=== PATIENT | male | born 1970 | race Caucasian/White ===

== ENCOUNTER 2019-10-19 08:15 | Day surgery (SDC) | payer BC ==
[~2019-10-19 08:15] MED LIST: Buffered Lidocaine 1% SYRIN* 1 ML/SYRINGE INTRADERM ONE; Famotidine IV* 10 MG/ML 2 ML (20 mg) IV ONE; Lactated Ringers 1000 ML Bag* 1,000 ML IV SCH
[2019-10-19] MEDS ORDERED: ceFAZolin 2 GM PREMIX in ORs 2 GM/50 ML BAG ONE (08:35)
[2019-10-19] MEDS ORDERED: Buffered Lidocaine 1% SYRIN* 1 ML/SYRINGE INTRADERM ONE (08:35)
[2019-10-19] MEDS ORDERED: Famotidine IV* 10 MG/ML 2 ML (20 mg) ONE (08:36)
[2019-10-19] MEDS ORDERED: fentaNYL* 50 MCG/ML 2 ML VIAL (100 MCG VIAL) ONE ×2 (09:14→11:52)
[2019-10-19] MEDS ORDERED: Ondansetron INJ* 2 MG/ML VIAL ONE ×2 (09:14→13:00)
[2019-10-19] MEDS ORDERED: KETAMINE HCL* 50 MG/ML 10 ML VIAL ONE (09:14)
[2019-10-19] MEDS ORDERED: Dexamethasone IV* 4 MG/ML 1 ML (4 MG) ONE (09:14)
[2019-10-19] MEDS ORDERED: Midazolam* 1 MG/ML 5 ML VIAL (5 MG) ONE (09:14)
[2019-10-19] MEDS ORDERED: Ketorolac INJ* 30 MG/ML 1 ML VIAL ONE (09:14)
[2019-10-19] MEDS ORDERED: Propofol* 10 MG/ML 20 ML BTL ONE (09:14)
[2019-10-19] MEDS ORDERED: Lidocaine 2% PF * 5 ML VIAL ONE (09:14)
[2019-10-19] MEDS ORDERED: EPINEPHRINE 1 MG/ML 1 ML VIAL ONE (10:07)
[2019-10-19] MEDS ORDERED: Lidocaine 1% w EPI 1:100,000* MDV 20 ML VIAL ONE (10:07)
[2019-10-19] MEDS ORDERED: Bupivacaine 0.5%* 50 ML MDV VIAL ONE (10:08)
[2019-10-19] MEDS ORDERED: Bupivacaine 0.25% SDV* 30 ML ONE (10:08)
[2019-10-19] MEDS ORDERED: Acetaminophen IV 1GM/100ML * 100 ML ONE (11:55)
[2019-10-19] MEDS ORDERED: HYDROmorphone INJ1* 1 MG/ML SYRINGE IV PRN (11:56)
[2019-10-19] MEDS ORDERED: fentaNYL* 50 MCG/ML 2 ML VIAL (100 MCG VIAL) IV PRN (11:56)
[2019-10-19] MEDS ORDERED: Naloxone* 0.4 MG/ML 1 ML VIAL IV PRN (11:56)
[2019-10-19] MEDS ORDERED: Ondansetron INJ* 2 MG/ML VIAL IV PRN (11:56)
[2019-10-19] MEDS ORDERED: Scopolamine 1.5 mg* PATCH ONE (11:57)
[2019-10-19] MEDS ORDERED: HYDROmorphone INJ1* 1 MG/ML SYRINGE ONE (12:15)
[2019-10-19] MEDS ORDERED: DiMENhydriNATE IV* 50 MG/ML VIAL ONE (13:22)
[2019-10-19 14:39] VITALS: BP 138/85
--- NOTE | 2019-10-20 00:18 | OP ---
DATE OF OPERATION: 10/19/19 [facility] DATE OF : 70 ATTENDING SURGEON: Dirk Galeano MD. [employer] SALES AGENT: DARRELL Ahumada. ANESTHESIA: General. PRE-OP DIAGNOSES: 1. Right knee anterior cruciate ligament tear. 2. Right knee lateral meniscus tear. POST-OP DIAGNOSES: 1. Right knee anterior cruciate ligament tear. 2. Right knee lateral meniscus tear. OPERATIVE PROCEDURES: 1. Right knee arthroscopy. 2. Right knee anterior cruciate ligament reconstruction using allograft. 3. Lateral meniscus repair. ESTIMATED BLOOD LOSS: Negligible. COMPLICATIONS: None. INDICATIONS: Mr. Holman is a 49-year-old male who had sustained an ACL tear and a lateral meniscus tear several years ago. He had been treated conservatively and has done alright, but has been having more troubles with knee pain as well as the knee giving out. He had re-presented to the office very interested in pursuing the surgery we had talked about. Infection, scar formation, stiffness, DVT, pulmonary embolism, and continued instability and pain as well as predisposition to arthritic change were some of the risks discussed. He had wished to proceed. DESCRIPTION OF PROCEDURE: The patient was brought to the OR and an LMA was placed. Right knee was prepped and then draped. Portal sites were preinjected using 0.25% Marcaine and 1% lidocaine with epinephrine. Standard lateral portal was made first using an 11 blade. Blunt trocar with a sheath was easily introduced into the knee and the camera was introduced into the sheath. The knee was allowed to insufflate and pulling back, patellofemoral joint was nicely visualized. Cartilage on the underside of the patella and the femoral notch appeared to be in excellent condition. He had a bit of a medial plica, but considering he has no patellofemoral complaints, this was left alone. Dropping down the medial gutter, no loose bodies were encountered and medial compartment was entered. Good looking medial meniscus was present and medial portal was made. Probe was introduced and no meniscus tear was identified. Moving into the notch, he had empty notch sign. Lateral compartment was entered and he had a specific posterior lateral meniscus tear. Again, pictures were taken. Micro-rasp was used to scrape along the tear and Ceterix was called for. A Ceterix stitch was able to be passed at the most lateral aspect of the tear, but because of the angle and the depth, I had difficulty trying to bring the Ceterix in for a second bite more towards the posterior horn. Camera was shifted to the medial portal, and I eventually used a FastFix on the underside of the meniscus coming upwards to pass a stitch to hold this in place. I could now hook the meniscus by the tear and there was no play to it at all. Coming back into the notch, soft tissues were taken down using the shaver and bur was then used to perform a notchplasty. Graft was called for and defrosted on the back table. I confirmed the size of the tunnels sliding through the sizers and both were 10 that slid nicely through the 10-mm sizer. A 10-mm drill was setup. Guide was set at 50 degrees and placed right up against the PCL area. Skin was dented, an incision was made and guidewire was then run up through the tibia and it appeared it came out nicely right in the footprint of the old ACL. The 10 drill was then used to drill upwards and rasp was then used to smooth the edges of the old footprint when the previous ACL was. A 7-mm ynvm-[id number]-fus guide was then placed and adjusted until it was at approximately the 11 o'clock position. Beath pin was then run through the [id number] guide and the [place] drill was then run for approximately 30 mm. I estimated that would allow for full seating of both of the bone plugs. Sutures were pulled through and a notch was made right at the 10 o'clock position of the femoral tunnel. Graft was then pulled up and fully seated and nice solid fit was obtained. A 7 x 25 mm interference screw was then placed and a squeak was obtained after the head was full seated. Knee was taken through several cycles of flexion and extension and no pistoning of the distal bone plug occurred. A 7 x 25 was then also placed on the distal plug and nice bite was obtained. He now had a nice solid Maura's. Final picture was taken. All instrumentation was removed and skin on the tibial tunnel was repaired using 2-0 Vicryl sutures. Monocryl was used in the portal sites as well as over the tibial tunnel. Sterile dressing, Cryo/Cuff, and an IROM brace with motion locked from 0 to 90 was also applied in the OR. The patient had the LMA removed in the OR and was stable on transfer to the recovery room. DISPOSITION/DISCHARGE SUMMARY: Mr. Holman is a 49-year-old male who successfully underwent a right ACL reconstruction and lateral meniscus repair. He tolerated the procedure well. There were no complications. He is currently rolling towards the recovery room. Once he can tolerate p.o., his pain well controlled and can void, he will be discharged home. Script for Keli will be e -scribed in. He has instructions to keep the dressing clean, dry, and intact for the next 3 days, but after that may take his dressing down, cover sutures with Band-Aid, may shower, wash and get that wet but should not soak it. He should start a range of motion program and coordinate with Physical Therapy hopefully later this week. We will see him in the office in approximately 10 days to remove his sutures and make sure he is doing well. If there are any problems or anything odd should occur, there are instructions to give the office a call. [id number]/[facility] #: [id number] [place]
== END 2019-10-19 14:30 | disposition home or self-care (01) ==
LOC: OR 08:15
PROVIDERS: ATTEND Orthopaedic Surgery
DX: S83.511D Sprain of anterior cruciate ligament of right knee, subsequent encounter (principal); S83.241D Other tear of medial meniscus, current injury, right knee, subsequent encounter; X50.1XXD Overexertion from prolonged static or awkward postures, subsequent encounter; I10 Essential (primary) hypertension; F41.9 Anxiety disorder, unspecified; K58.9 Irritable bowel syndrome, unspecified; Z87.891 Personal history of nicotine dependence
CPT/HCPCS: A9270-GY; C1713; C1776; J0690; J1100; J1170; J1240; J1885; J2250; J2405; J2704; J3010; J3490